=== PATIENT | male | born 1995 | race Caucasian/White ===

== ENCOUNTER 2023-04-22 11:12 | Emergency (ER) | payer BC, SELFPAY ==
--- NOTE | ~2023-04-22 | XR_ITS ---
EXAMINATION: XR knee LT min 4V DATE: 04/22/2023 11:45 INDICATION: Left knee injury and pain. TECHNIQUE: 4 views of left knee were obtained. COMPARISON: None. FINDINGS: There is a nondisplaced fracture of medial aspect of lateral tibial plateau. Joint spaces a re normal. There is a moderate-sized knee joint effusion. IMPRESSION: 1. Nondisplaced fracture of lateral tibial plateau. 2. Moderate-sized knee joint effusion. Reviewed, dictated and finalized at location A.
--- NOTE | 2023-04-22 11:17 | ED.LOWEXIN ---
HPI - Extremity Injury (Lower) General Chief Complaint: Extremity Injury, Lower Stated Complaint: ankle injury Time Seen by Provider: 04/22/23 11:17 Source: patient Mode of arrival: ambulatory Limitations: no limitations History of Present Illness HPI Narrative: Zeus is a 28-year-old male patient presenting to the clinic today with complaints of left knee injury/pain that occurred yesterday while playing wiffle ball. He reports he was back pulling and turned and twisted the left knee and felt a pop. Is having pain over the lateral aspect of the left knee. Pain with flexion and extension of the left knee. Rates pain 1 when keeping the knee still and 5/10 when moving the left knee and the pain is radiating up into his lateral hip. Related Data Home Medications Medication Instructions Recorded Confirmed clomiphene citrate 50 mg tablet mg 04/22/23 (Clomid) Allergies Allergy/AdvReac Type Severity Reaction Status Date / Time No Known Allergies Allergy Unknown Unverified 03/17/16 11:32 Review of Systems Review of Systems: Pertinent positives per HPI. Patient denies any fever, chills, rash, headache, visual changes, dizziness, cough, runny nose, sore throat, shortness of breath, chest pain, palpitations, nausea, vomiting, diarrhea, constipation, abdominal pain, or any urinary issues. PMFSH Comments At the time of my signature, I reviewed and agree with the nursing past medical, surgical, social, and family history. There is no relevant family history pertinent to the patient complaint. Exam Narrative: General: Well-developed, well nourished, in no apparent distress Head: Normocephalic, atraumatic. Cardio: Regular rate and rhythm, s1 and s2 normal, no murmur appreciated. Resp: Clear to auscultation bilaterally, no rhonchi, rales, wheezing or rubs. Musculoskeletal: No deformity, tender to palpation over the lateral collateral ligament, pain reproduced with flexion and extension of the left knee and he is unable to fully flex the left knee due to pain, mild swelling noted, no crepitus palpable, muscle strength strong and equal, peripheral pulse strong, no cyanosis, limping gait and normal station Course Course Emergency Course: Portions of this record may have been created with voice recognition software. Level of Care: Express Care Visit Vital Signs Vital signs: Vital signs reviewed MDM - Extremity Injury (Lower) MDM Narrative Medical decision making narrative: At the time of visit patient is resting comfortably on the exam table. X-ray of the left knee was performed and shows a lateral tibial plateau fracture with a moderate size knee joint effusion of the left knee. I suspect the patient has a LCL knee sprain as well. Knee immobilizer and crutches were given to the patient. 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 Supportive measures were discussed with the patient he voiced understanding of discharge instructions and agrees to treatment plan. Differential Diagnosis Differential diagnosis: Likely acute internal derangement of knee and other (Knee sprain, knee fracture) Imaging Data Radiologist's impression: Close Knee X-Ray (Signed) Hima Michel - 04/22/23 [facility] [address] [address] XRay Report Signed Patient: Zeus Ricardo : 1995 MR#: [id number] Age/Sex: 28 / M Acct:[id number] Loc: [facility]? ? ADM Date: 04/22/23Attending Dr: Ordering Physician: Caleb Storm APRN Date of Service: 04/22/23 Procedure(s): XR knee LT min 4V Accession Number(s): [id number] cc: Moraima Villanueva Jeremy C. APRN~ EXAMINATION: XR knee LT min 4V DATE: 04/22/2023 11:45 INDICATION: Left knee injury and pain. TECHNIQUE: 4 views of left knee were obtained. COMPARISON: Non
[2023-04-22 11:32] VITALS: BP 131/75; PULSE 87; RESP 16; TEMP 37.1; O2SAT 99
== END 2023-04-22 12:09 | disposition home or self-care (01) ==
PROVIDERS: Emergency Provider Nurse Practitioner Family
DX: S83.422A Sprain of lateral collateral ligament of left knee, initial encounter (principal); S82.125A Nondisplaced fracture of lateral condyle of left tibia, initial encounter for closed fracture; X50.9XXA Other and unspecified overexertion or strenuous movements or postures, initial encounter; Y93.69 Activity, other involving other sports and athletics played as a team or group
CPT/HCPCS: 73564; 99213; G0463; L1830

== ENCOUNTER 2023-12-04 12:53 | Emergency (ER) | payer BC, SELFPAY ==
[2023-12-04 13:13] VITALS: BP 122/61; PULSE 69; RESP 16; TEMP 36.7; O2SAT 97
[2023-12-04 13:14] VITALS: BP 122/61; PULSE 69; RESP 16; TEMP 36.7; O2SAT 97
--- NOTE | 2023-12-04 13:38 | ED.URI ---
HPI - URI/Sore Throat General Chief Complaint: Upper Respiratory Infection Stated Complaint: sorethroat,joint pains Time Seen by Provider: 12/04/23 13:23 Source: patient and RN notes reviewed Mode of arrival: ambulatory Limitations: no limitations History of Present Illness HPI Narrative: Patient presents today with a 4 to five-day history of sore throat, nasal congestion, postnasal drip, body aches, and mild cough. He has been taking Robitussin and Mucinex with mild relief. Denies known sick contacts. He also did a home COVID test a few days ago that was negative. Related Data Home Medications Medication Instructions Recorded Confirmed levocetirizine 5 mg tablet (Xyzal) 5 mg PO DAILY 12/04/23 12/04/23 Allergies Allergy/AdvReac Type Severity Reaction Status Date / Time tree nut Allergy Itching Verified 12/04/23 13:13 Review of Systems Review of Systems: CONSTITUTIONAL: Denies fever, chills, or sweats.+ body aches EYES: Denies visual changes, redness, or discharge. ENT: Denies rhinorrhea, or otalgia.+ sore throat, congestion CARDIOVASCULAR: Denies chest pain, palpitations, or edema. RESPIRATORY: Denies dyspnea.+ cough GASTROINTESTINAL: Denies abdominal pain, nausea, vomiting, or diarrhea. GENITOURINARY: Denies dysuria or hematuria. SKIN: Denies rash, itching, or wounds. MUSCULOSKELETAL: Denies back pain, joint pain, or myalgia. NEUROLOGIC: Denies headache, numbness, tingling, or weakness. PSYCH: Denies depression or anxiety. [facility] Past Medical History Medical History Allergies Asthma Calcaneovalgus deformity of right foot Closed nondisplaced fracture of left tibial plateau March 2023 Pes planus of both feet Posterior tibial tendinitis of right lower extremity Spring ligament tear Surgical History Surgical History History of surgery on lower extremity lesion removed from left leg History of tonsillectomy Family History Family History Grandparent Alcoholism Other Alcoholism Social History Social History Social History: caffeine use Smoking status: Never smoker Alcohol intake: current Substance use type: does not use Lack of Transportation: No Lack of Food: Never True Current Housing: I Have Housing Concerned About Future Housing: No Difficulty Paying Gas/Electric Bills: No Difficulty Paying for Meds: No Currently Unemployed: No Education: Bachelor's Degree Difficulty w/ Childcare or Family Care: No Living arrangements: with family Occupation/Education: occupation 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 Please see nursing chart for further information. There is no relevant family history pertinent to the presenting complaint Exam Narrative: GENERAL: Well-appearing, well-nourished, and in no acute distress. HEAD: Normocephalic, atraumatic. EYES: EOMI. No redness or drainage. Conjunctivae normal. ENT: Mucous membranes pink and moist. Nares congested. No rhinorrhea. TMs normal bilaterally. Throat mildly erythematous without edema or exudate. Uvula midline. NECK: Normal AROM. Supple. No lymphadenopathy. CHEST: No respiratory distress. Clear to auscultation. HEART: Regular rate and rhythm. No murmur appreciated. EXTREMITIES: Normal range of motion. No edema. SKIN: Warm, dry, no rash. Capillary refill normal. Normal skin turgor. NEURO: No focal deficits. Alert and oriented x3. Gait steady. PSYCH: Normal affect. No signs of depression or anxiety. Course Course Level of Care: Express Care Visit
== END 2023-12-04 13:47 | disposition home or self-care (01) ==
PROVIDERS: Emergency Provider Nurse Practitioner
DX: J06.9 Acute upper respiratory infection, unspecified (principal); J45.909 Unspecified asthma, uncomplicated; Z79.899 Other long term (current) drug therapy
CPT/HCPCS: 87081; 87880; 99213; G0463